=== PATIENT | female | born 1990 | race Two or more races ===

== ENCOUNTER → 2020-01-27 | Outpatient (CLI) | payer SELFPAY ==
--- NOTE | 2020-01-28 08:06 | RADIOLOGY REPORT (SQ) ---
EXAM DESCRIPTION: U/S [id number] TRNABD 1GES W/ODOP IMAGES COMPLETED DATE/TIME: 01/27/2020 2:33 pm REASON FOR STUDY: Z34.81 ENCOUNTER FOR SUPRVSN OF NORMAL , FIRST TRIMESTER Z34.81 ENCOUNTE R FOR SUPRVSN OF NORMAL , FIRST TRIM COMPARISON: None. TECHNIQUE: Transabdominal static and realtime grayscale images acquired of the pelvis. Additional se lected spectral and color Doppler images recorded. All images stored on PACs. bHCG: Not available. CLINICAL DATES: 11 weeks 4 days. LIMITATIONS: None. FINDINGS: FETUS: Single Living intrauterine . ULTRASOUND EGA: 11 week 0 days. ULTRASOUND DARSHAN: 08/17/2020 EFW: Not applicable less than 20 weeks. CRL: Visualized. FHR: 158 beats per minute. SURVEY: Too early to assess. AMNIOTIC FLUID: Adequate amount. PLACENTA: Not yet developed due to early gestation. SUBCHORIONIC BLEED: No. SIZE OF BLEED: Not applicable. UTERUS: No masses. No anomalies. CERVICAL LENGTH: 3.1 cm. Closed. RIGHT ADNEXA: Normal ovary with normal vascular flow. No adnexal free fluid. No adnexal masses. LEFT ADNEXA: Ovary not identified due to poor acoustical window. No adnexal free fluid. No adnexal masses. FREE FLUID: None. OTHER: No other significant finding. IMPRESSION: LIVING INTRAUTERINE . EGA 11 WEEK 0 DAYS. Trimester of : First trimester - 0 to 13 weeks. TECHNICAL DOCUMENTATION: JOB ID: [id number] 2010 [employer]- All Rights Reserved rev Reading location - IP/workstation name: [email or web address]
== END ==
LOC: RAD 13:55
PROVIDERS: ATTEND Midwife
DX: Z34.81 Encounter for supervision of other normal pregnancy, first trimester (principal); Z3A.11 11 weeks gestation of pregnancy
CPT/HCPCS: 76801

== ENCOUNTER → 2020-04-03 | Outpatient (CLI) | payer SELFPAY ==
--- NOTE | 2020-04-03 16:10 | RADIOLOGY REPORT (SQ) ---
EXAM DESCRIPTION: U/S OB 14+ TRNABD 1GES W/O DOP IMAGES COMPLETED DATE/TIME: 04/03/2020 3:34 pm REASON FOR STUDY: Z34.82 ENCOUNTER FOR SUPRVSN OF NORMAL , SECOND TRIMESTER Z34.82 ENCOUNT ER FOR SUPRVSN OF NORMAL , SECOND TRI COMPARISON: 01/27/2020 TECHNIQUE: Static and Dynamic grayscale imaging performed of gravid uterus using transabdominal appr oach. Additional selected color Doppler and spectral images recorded. All stored on PACS. LIMITATIONS: None. FINDINGS: FETUSES SEEN:1 EGA: 21 weeks 4 days. Calculated using BPD,FL,HC,AC documented on images. No discrepancy with clinic al dates. DARSHAN: 08/10/2020 EFW: 457 g grams LVP: 7.3 x 5.2 cm PLACENTA: Anterior location. The placenta is low-lying versus marginal. Follow-up studies are recom mended. PRESENTATION: Cephalic. ANATOMY: HEART RATE: 150 beats per minute. FOUR CHAMBER HEART: Visualized. THREE VESSEL CORD: Yes. CORD INSERTION: Visualized. KIDNEYS AND BLADDER: Visualized. Appear normal. STOMACH: Visualized. Appears normal. SPINE: Normal as visualized. BRAIN AND LATERAL VENTRICLES: Visualized. Appear normal. OTHER: No other significant finding. MATERNAL ADNEXA: Maternal ovaries not visualized. CERVICAL LENGTH: 4.7 cm Closed. OTHER: No other significant finding. IMPRESSION: LIVING INTRAUTERINE . ESTIMATED GESTATIONAL AGE 21 WEEKS 4 DAYS. THE PLACENTA IS MARGINAL VERSED LOW LYING. FOLLOW UP ULTRASOUND IS RECOMMENDED TO ENSURE NORMAL MIGR ATION. Trimester of : Second trimester - 13 weeks 1 day to 27 weeks 6 days. TECHNICAL DOCUMENTATION: JOB ID: [id number] 2010 [employer]- All Rights Reserved Reading location - IP/workstation name: [email or web address]
== END ==
LOC: RAD 13:54
PROVIDERS: ATTEND Midwife
DX: O43.892 Other placental disorders, second trimester (principal); Z3A.21 21 weeks gestation of pregnancy
CPT/HCPCS: 76805

== ENCOUNTER → 2020-05-21 | Outpatient (CLI) | payer SELFPAY ==
--- NOTE | 2020-05-21 15:18 | RADIOLOGY REPORT (SQ) ---
EXAM DESCRIPTION: U/S OB 14+ TRNABD 1GES W/O DOP IMAGES COMPLETED DATE/TIME: 05/21/2020 2:25 pm REASON FOR STUDY: Z34.82 ENCOUNTER FOR SUPRVSN OF NORMAL , SECOND TRIMESTER Z34.82 ENCOUNT ER FOR SUPRVSN OF NORMAL , SECOND TRI COMPARISON: 04/03/2020 TECHNIQUE: Limited transvaginal grayscale ultrasound for evaluation of specific requested obstetrica l parameters. LIMITATIONS: None. FINDINGS: CERVICAL LENGTH: 3.3 cm. Closed. ELIAN: 21.9 cm. FHR: 139 beats per minute. PRESENTATION: Breech. PLACENTA: Anterior, not low lying or previa. ANATOMY: Not assessed OTHER: Estimated gestational age 29 weeks 2 days. Estimated weight 1397 g, 68th percentile. IMPRESSION: LIMITED OBSTETRICAL ULTRASOUND WITH MEASURED PARAMETERS DELINEATED ABOVE. Trimester of : Third trimester - 28 weeks to delivery. TECHNICAL DOCUMENTATION: JOB ID: [id number] 2010 [employer]- All Rights Reserved Reading location - IP/workstation name: [email or web address]
== END ==
LOC: RAD 13:52
PROVIDERS: ATTEND Midwife
DX: Z34.83 Encounter for supervision of other normal pregnancy, third trimester (principal); Z3A.29 29 weeks gestation of pregnancy
CPT/HCPCS: 76805

== ENCOUNTER 2020-08-04 02:59 | Inpatient (IN) | payer SELFPAY ==
[2020-08-04 03:41] LABS: APPEARANCE,URINE CLEAR; BILIRUBIN,URINE NEGATIVE (NEGATIVE); COLOR,URINE YELLOW; GLUCOSE, URINE NEGATIVE (NEGATIVE); KETONES,URINE NEGATIVE (NEGATIVE); LEUKOCYTE ESTERASE,URINE NEGATIVE (NEGATIVE); NITRITE,URINE NEGATIVE (NEGATIVE); PROTEIN,URINE NEGATIVE (NEGATIVE); URINE SPECIFIC GRAVITY 1.013; UROBILINOGEN,URINE NEGATIVE mg/dL (<2.0)
[2020-08-04] MEDS ORDERED: RINGERS SOLUTION,LACTATED 1,000 ML IV ONE (03:45)
[2020-08-04] MEDS ORDERED: RINGERS SOLUTION,LACTATED 1,000 ML IV PRN (03:45)
[2020-08-04] MEDS ORDERED: OXYTOCIN 10 UNIT/ML VIAL ONE (03:50)
[2020-08-04] MEDS ORDERED: MISOPROSTOL 0.2 MG TABLET ONE ×2 (03:50→14:39)
[2020-08-04] MEDS ORDERED: LIDOCAINE 1% INJ-PF (10 MG/ML) 30 ML SDV ONE (03:50)
[2020-08-04] MEDS ORDERED: OXYTOCIN/0.9 % SODIUM CHLORIDE 30 UNIT/500 ML RTUINJ ONE (03:50)
[2020-08-04 03:55] LABS: URINE METHADONE SCREEN NEGATIVE
[2020-08-04 04:08] LABS: URINE AMPHETAMINES SCREEN NEGATIVE; URINE BARBITURATES SCREEN NEGATIVE; URINE BENZODIAZEPINES SCREEN NEGATIVE; URINE COCAINE SCREEN NEGATIVE; URINE MARIJUANA (THC) SCREEN NEGATIVE; URINE PHENCYCLIDINE SCREEN NEGATIVE
[2020-08-04 04:27] LABS: ABSOLUTE EOSINOPHILS # (AUTO) 0.1 10^3/uL (0.0-0.6); ABSOLUTE LYMPHOCYTES (AUTO) 1.9 10^3/uL (0.5-4.7); ABSOLUTE MONOCYTES (AUTO) 0.5 10^3/uL (0.1-1.4); ABSOLUTE NEUT (AUTO) 6.1 10^3/uL (1.7-8.2); BASOPHILS % (AUTO) 0.3 % (0-2); EOSINOPHILS % (AUTO) 0.7 % (0-6); HEMATOCRIT 32.3 % (36.0-47.0); HEMOGLOBIN 11.1 g/dL (12.0-15.5); MEAN CORPUSCULAR HEMOGLOBIN 30.8 pg (27.0-33.4); MEAN CORPUSCULAR HGB CONC 34.4 g/dL (32.0-36.0); MEAN CORPUSCULAR VOLUME 89 fl (80-97); MONOCYTES % (AUTO) 6.4 % (3-13); PLATELET COUNT 150 10^3/uL (150-450); RED BLOOD COUNT 3.62 10^6/uL (3.72-5.28); RED CELL DISTRIBUTION WIDTH 14.7 % (11.5-14.0); SEGMENTED NEUTROPHILS % (AUTO) 70.6 % (42-78); TOTAL CELLS COUNTED % (AUTO) 100 %; WHITE BLOOD COUNT 8.6 10^3/uL (4.0-10.5)
--- NOTE | 2020-08-04 05:56 | Admission Physical ---
Datetime Report Generated by CPN: 08/04/2020 05:55 CURRENT ADMISSION Chief Complaint: Uterine Contractions Indication for Induction: Not Applicable Admit Impression : Term, Intrauterine ; Active Labor; Ruptured Membranes Admit Plan: Admit to Unit; Initiate Labor Protocol ALLERGIES Medication Allergies: No Medication Allergies: No Known Allergies (08/04/2020) Latex: No Latex Allergies Food Allergies: no Environmental Allergies: no OBSTETRICAL HISTORY EDC: 08/13/2020 00:00 : 2 Para: 1 Term: 1 : 0 SAB: 0 IAB: 0 Ectopic: 0 Livin Cesareans: 0 VBACs: 0 Multiple Births: 0 Gestational Diabetes: No Rh Sensitization: No Incompetent Cervix: No WHIT: No Infertility: No ART Treatment: No Uterine Anomaly: No IUGR: No Hx Previous C/S: No Macrosomia: No Hx Loss/Stillborn: No PIH: No Hx : No Placenta Previa/Abruption: No Depression/PP Depression: No PTL/PROM: No Post Hemorrhage: No Current Procedures: Ultrasound SEE RECORDS Alcohol: No Marijuana : No Cocaine: No Other Illicit Drugs: No Cigarettes: Never Smoker. [id number] MEDICAL HISTORY Diabetes: No Blood Transfusion: No Pulmonary Disease (Asthma, TB): No Breast Disease: No Hypertension: No Associate Field Service Engineer Surgery: No Heart Disease: No Hosp/Surgery: Yes Autoimmune Disorder: No Anesthetic Complications: No Kidney Disease: No Abnormal Pap Smear: No Neuro/Epilepsy: No Psychiatric Disorders: No Other Medical Diseases: No Hepatitis/Liver Disease: No Significant Family History: No Varicosities/Phlebitis: No Trauma/Violence : No Thyroid Dysfunction: No Medical History Comments: childbirth INFECTIOUS HISTORY Gonorrhea: No Genital Herpes: No Chlamydia: No Tuberculosis: No Syphilis: No Hepatitis: No HIV/AIDS Exposure: No Rash or Viral Illness: No HPV: No PHYSICAL EXAM General: Normal HEENT: Normal Neurologic: Normal Thyroid: Normal Heart: Normal Lungs: Normal Breast: Normal Back: Normal Abdomen: Normal Genitourinary Exam: Normal Extremities: Normal DTRs: Normal Pelvic Type: Adequate Vital Signs: Reviewed; Within Normal Limits VAGINAL EXAM Dilatation: 1 Effacement: 50 Station: -4 MEMBRANES Pooling: Positive Membranes: Ruptured Amniotic Fluid Color: Clear FETUS A EGA: 38.5 Monitoring: External US FHR- Baseline: 130 Variability: Moderate 6-25bpm Accelerations: 15X15 Decelerations: None FHR Category: Category I Estimated Weight (gm): 3800 Presentation: Vertex PLANS FOR LABOR AND DELIVERY Labor and Delivery: None Pain Management: Medications Feeding Preference: Breast Benefit of Breast Feed Discussed: Yes Circumcision: No INFORMED CONSENT Signature: with User ID: [email or web address]
[2020-08-04] MEDS ORDERED: OXYTOCIN/0.9 % SODIUM CHLORIDE 30 UNIT/500 ML RTUINJ IV PRN ×2 (07:37→12:11)
[2020-08-04] MEDS ORDERED: PROMETHAZINE HCL INJ 25 MG/1 ML VIAL ONE (10:24)
[2020-08-04] MEDS ORDERED: NALBUPHINE HCL INJ 10 MG/1 ML AMPULE ONE (10:24)
[2020-08-04] MEDS ORDERED: PROMETHAZINE HCL INJ 25 MG/1 ML VIAL IV ONE (10:29)
[2020-08-04] MEDS ORDERED: NALBUPHINE HCL INJ 10 MG/1 ML AMPULE INJ ONE (10:29)
[2020-08-04 11:51] LABS: CHLAM PCR NOT DETECTED (NOT DETECT)
[2020-08-04] MEDS ORDERED: DIPHENHYDRAMINE HCL 25 MG CAPSULE PO PRN (12:11)
[2020-08-04] MEDS ORDERED: PROMETHAZINE HCL 25 MG SUPP.RECT PR PRN (12:11)
[2020-08-04] MEDS ORDERED: NA PHOS,M-B/NA PHOS,DI-BA (ADULT) 133 ML ENEMA PR PRN (12:11)
[2020-08-04] MEDS ORDERED: ZOLPIDEM TARTRATE 5 MG TABLET PO PRN (12:11)
[2020-08-04] MEDS ORDERED: GLYCERIN/WITCH HAZEL LEAF 1 EACH MED..WIPE TP PRN (12:11)
[2020-08-04] MEDS ORDERED: PROMETHAZINE HCL 25 MG TABLET PO PRN (12:11)
[2020-08-04] MEDS ORDERED: BENZOCAINE/MENTHOL AEROSOL SPRAY 56 ML TOP PRN (12:11)
[2020-08-04] MEDS ORDERED: DIBUCAINE 1% OINTMENT 28 GM TP PRN (12:11)
[2020-08-04] MEDS ORDERED: DIPH/PERTUSS(ACELL)/TETANUS VAC/PF 0.5 ML SYR (>=10YO) IM PRN (12:11)
[2020-08-04] MEDS ORDERED: MAGNESIUM HYDROXIDE SUSP 30 ML UDCUP PO PRN (12:11)
[2020-08-04] MEDS ORDERED: ACETAMINOPHEN WITH CODEINE #3 TABLET PO PRN ×2 (12:11)
[2020-08-04] MEDS ORDERED: MEASLES,MUMPS&RUBELLA VACC/PF 0.5 ML VIAL SUBCUT PRN (12:11)
[2020-08-04] MEDS ORDERED: PROMETHAZINE HCL INJ 25 MG/1 ML VIAL IV PRN (12:11)
[2020-08-04] MEDS ORDERED: ACETAMINOPHEN 325 MG TABLET PO PRN (12:11)
[2020-08-04] MEDS ORDERED: PSEUDOEPHEDRINE HCL 30 MG TABLET PO PRN (12:11)
[2020-08-04] MEDS ORDERED: IBUPROFEN 800 MG TABLET ONE (13:37)
[2020-08-04] MEDS: IBUPROFEN 800 MG TABLET PO SCH ×2 (13:39→22:34)
--- NOTE | 2020-08-04 14:54 | Birth Certificate Data ---
Cert Data Datetime Report Generated by CPN: 08/04/2020 14:54 CERTIFICATE DATA Delivery Provider: NOÉ SIMPSON (08/04/2020 03:16:Cait Tong CNM ) 47a. Care: Yes (08/04/2020 03:16:KUMAR Shelton) 47b. Date of First Visit: 12/26/2019 00:00 (08/04/2020 03:16:KUMAR Shelton) 47c. Date of Last Visit: 07/14/2020 00:00 (08/04/2020 03:16:KUMAR Shelton) 47d. Number of Visits: 10 (08/04/2020 03:16:KUMAR Shelton) 48a. Number of Prev Live Births: 1 (08/04/2020 03:16:KUMAR Shelton) 48b. Now Livin (08/04/2020 03:16:KUMAR Shelton) 48c. Live Births Now : 0 (08/04/2020 03:16:QS system process) 48e. Losses: 0 (08/04/2020 03:16:Radha Bellavance, RNC) RISK FACTORS IN THIS 49a. Diabetes: No (08/04/2020 03:16:Radha Bellavance, RNC) 49b. Hypertension: No (08/04/2020 03:16:Radha Bellavance, RNC) 49c. Previous Births: 0 (08/04/2020 03:16:Radha Bellavance, RNC) 49d. Stillborns: No (08/04/2020 03:16:Radha Bellavance, RNC) 49d. IUGR: No (08/04/2020 03:16:Radha Bellavance, RNC) 49e. Infertility Treatment: No (08/04/2020 03:16:Radha Bellavance, RNC) 49f. Previous Cesareans: 0 (08/04/2020 03:16:Radha Bellavance, RNC) Mother's Height 50b. Height Inches: 60 (08/04/2020 03:10:QS system process) Mother's Weight 51a. Pre- Weight (lbs): 152 (08/04/2020 03:16:KUMAR Shelton) 51b. Weight at Delivery (lbs): 176 (08/04/2020 14:21:QS system process) 52. Dt Last Normal Menses Began: 11/07/2019 00:00 (08/04/2020 03:16:KUMAR Shelton) Infections Present/Treated 53a. Gonorrhea: No (08/04/2020 03:16:KUMAR Shelton) Results this Hospital Visit : Negative (08/04/2020 03:16:KUMAR Shelton) 53b. Syphilis: No (08/04/2020 03:16:KUMAR Shelton) Results this Hospital Visit: NONREACTIVE (08/04/2020 04:02:QS system process) 53c. Chlamydia: No (08/04/2020 03:16:Rahda Bellavance, RNC) Results this Hospital Visit: Negative (08/04/2020 03:16:Radhaapwan Schultze, RNC) 53d. Hepatitis B: No (08/04/2020 03:16:Radha Marione, RNC) Results this Hospital Visit: Negative (08/04/2020 03:16:Radha Marione, RNC) 53e. Hepatitis C: Negative (08/04/2020 03:16:Radhapawan Salas, RNC) 53h. Mother Tested for HBsAG: Yes (08/04/2020 03:16:Radhapawan Salas, RNC) 53i. Date Tested: 01/24/2020 00:00 (08/04/2020 03:16:Radhapawan Salas, RNC) 53j. Test Result: Negative (08/04/2020 03:16:Radha Marione, RNC) Obstetric Procedures 54a, b, c. Obstetric Procedures: Ultrasound (08/04/2020 03:16:Radha Salas RNC) Cigarette Smoking Cigarette Smoking: Never Smoker. [id number] (08/04/2020 03:16:KUMAR Shelton) Onset of Labor 56a. PROM >12 Hrs: 10.30 (08/04/2020 04:30:QS system process) 56b. Precipitous Labor <3 Hrs: 1 (08/04/2020 03:16:QS system process) 56c. Prolonged Labor > 20 Hrs: 1 (08/04/2020 03:16:QS system process) 57a. Induction of Labor: Augmentation (08/04/2020 03:16:KUMAR Celestin) 57c. Non-Vertex Presentation A: Vertex (08/04/2020 03:16:KUMAR Celestin) 57d. Steroids - Lung Mat: None (08/04/2020 03:16:KUMAR Celestin) 57d. Steroids - Lung Mat: Not Applicable (08/04/2020 03:16:KUMAR Celestin) 57f. Mat Ch[place] or Temp >100.4: 98.3 (08/04/2020 03:16:Little Whitley RN) 57g. Moderate/Heavy Meconium: Clear (08/04/2020 04:30:KUMAR Shelton) 57h. Intolerance of Labor: N/A (08/04/2020 03:16:KUMAR Celestin) : N/A (08/04/2020 03:16:KUMAR Celestin) 57i. Epidural/Spinal Anesthesia: IV Sedation (08/04/2020 03:16:KUMAR Celestin) Method of Delivery 58a. Forceps - Unsuccessful A: N/A (08/04/2020 03:16:KUMAR Celestin) 58b. Vacuum - Unsuccessful A: N/A (08/04/2020 03:16:Araceli Steward Tejal) 58c. Presentation at 58c. Presentation at - A : Vertex (08/04/2020 03:16:KUMAR Celestin) 58c. Presentation at - A : N/A (08/04/2020 03:16:KUMAR Celestin) 58c. Presentation at - A : Cephalic (08/04/2020 03:16:Araceli Camp, RNC) Final Route and Method of Del 58d. Baby A Route/Delivery: Vaginal (08/04/2020 11:48:Araceli Camp, [facility]) 58e. Trial of Labor Attempted: No (08/04/2020 03:16:Araceli Camp, RN) 58e. Trial of Labor Attempted A: N/A (08/04/2020 03:16:Araceli Camp, RN) 58e. Trial of Labor Attempted B: N/A (08/04/2020 03:16:Araceli Camp, RNC) Maternal Morbidity 59b. 3rd or 4th Degree Lacs: None (08/04/2020 03:16:Araceli Camp, RN) 59b. 3rd or 4th Degree Lacs: N/A (08/04/2020 03:16:Araceli Camp, RNC) Birthweight Baby A: 3570 (08/04/2020 03:16:Little Sales, RN) 60a. Pounds : 7 (08/04/2020 03:16:QS system process) 60b. Ounces: 14 (08/04/2020 03:16:QS system process) 61. GA at Delivery Baby A: 38.5 (08/04/2020 03:16:Araceli Camp, [facility]) : Early Term- 37- 38.6 Weeks (08/04/2020 03:16:QS system process) 62a. 5 Minute Baby A: 9 (08/04/2020 03:16:QS system process)
--- NOTE | 2020-08-04 14:54 | Delivery Summary ---
Del Sum A-C Datetime Report Generated by CPN: 08/04/2020 14:54 DELIVERY PERSONNEL DELIVERY PERSONNEL: [id number] Delivery Doctor:: NOÉ TATIANA Nurse Welder Production Line Arc Certified:: Cait Tong CNM Labor and Delivery Nurse:: Little Whitley RNcurtain cutter Nurse:: Azucena Cabral RN Nursery Nurse:: Hope Donahue RN Nursery Nurse:: Jennifer Izquierdo RN Gear Inspector/APRON CLEANER: Coby Christine CNA II Additional Personnel: : Araceli Steward, RNC MATERNAL INFORMATION Delivery Anesthesia: None Medications After Delivery: Pitocin 30 Units in 500ml NS/D5W Delivery QBL: 200 Maternal Complications: None Provider Comments: TATIANA VIABLE MALE WITH SPONTANEOUS CRY. CORD DOUBLE CLAMPED AND CUT. SPONTANEOUS INTACT PLACENTA WITH 3VC. NO LACERATIONS. MOTHER AND STABLE IN L_D#6. MARTII USED FOR INTERPRETATION DURING DELIVERY LABOR SUMMARY EDC: 08/13/2020 00:00 No. Babies in Womb: 1 Attempted: No Labor Anesthesia: IV Sedation LABOR INFORMATION Reason for Induction: Not Applicable Onset of Labor: 08/04/2020 10:20 Complete Dilatation: 08/04/2020 11:33 Oxytocin: Augmentation Group B Beta Strep: neg Antibiotics # of Doses: 0 Name of Antibiotic Given: NA Steroids Given: None Reason Steroids Not Administered: Not Applicable MEMBRANES Membranes Rupture Method: Spontaneous Rupture of Membranes: 08/04/2020 01:30 Length of Rupture (hr): 10.30 Amniotic Fluid Color: Clear Amniotic Fluid Amount: Scant Amniotic Fluid Odor: Normal STAGES OF LABOR Stage 1 hr: 1 Stage 1 min: 13 Stage 2 hr: 0 Stage 2 min: 15 Stage 3 hr: 0 Stage 3 min: 15 Total Time in Labor hr: 1 Total Time in Labor min: 43 VAGINAL DELIVERY Episiotomy: None Laceration #1: None Laceration Extension #1: N/A Laceration Repair: Not Applicable Sponge Count Correct: N/A Sharps Count Correct: N/A CSECTION DELIVERY Primary Indication: N/A Secondary Indication: N/A CSection Incidence: N/A Labor: N/A Elective: N/A CSection Incision: N/A BABY A INFORMATION Delivery Date/Time: 08/04/2020 11:48 Method of Delivery: Vaginal Nurse Controlled Delivery: No Born in Route : No : N/A Forceps: N/A Vacuum Extraction: N/A Shoulder Dystocia : No PRESENTATION/POSITION BABY A Presentation: Cephalic Cephalic Presentation: Vertex Vertex Position: Left Occipital Anterior Breech Presentation: N/A PLACENTA INFORMATION BABY A Placenta Delivery Time : 08/04/2020 12:03 Placenta Method of Delivery: Expressed Placenta Status: Delivered SCORES BABY A Heart Rate 1 min: >100 bpm Resp Effort 1 min: Good Cry Reflex Irritability 1 min: Cough or Sneeze or Pulls Away Muscle Tone 1 min: Active Motion Color 1 min: Body Svensen, Extremities Blue Resuscitation Effort 1 min: Tactile Stimulation SCORE 1 MIN: 9 Heart Rate 5 min: >100 bpm Resp Effort 5 min: Good Cry Reflex Irritability 5 min: Cough or Sneeze or Pulls Away Muscle Tone 5 min: Active Motion Color 5 min: Body Svensen, Extremities Blue Resuscitation Effort 5 min: N/A SCORE 5 MIN: 9 Resuscitation Effort 10 min: N/A INFORMATION BABY A Gestational Age at Delivery: 38.5 Gestational Status: Early Term- 37- 38.6 Weeks Infant Outcome : Liveborn Infant Condition : Stable Sex: Male IDENTIFICATION BABY A Infant Verification Date/Time: 08/03/2020 12:20 WEIGHT/LENGTH BABY A Birthweight (gm): 3570 Infant Weight (lb): 7 Weight (oz): 14 Infant Length (in): 19.50 Infant Length (cm): 49.53 CORD INFORMATION BABY A No. Cord Vessels: 3 Nuchal Cord : N/A Cord Blood Taken: Yes-For Eval (Mom's Blood Type - or O+) Suction: None ASSESSMENT BABY A Complications: None Physical Findings at Delivery: Molding of the Head Respirations: Appears Normal Skin to Skin: Yes Electrical Continuity Tester/ALS Called : No Infant Care By: A [place] RN Transferred To: Remains with Mother BABY B INFORMATION : N/A SIGNATURES Assignment: Arie Kevin, MD Signature: with User ID: [email or web address] : with User ID: [email or web address] : I was personally available for consultation and serving as supervising physician for the MLP.
[2020-08-04] MEDS ORDERED: MISOPROSTOL 0.2 MG TABLET PR ONE (14:58)
[2020-08-04] MEDS ORDERED: FENTANYL CITRATE INJ/PF 100 MCG/2 ML AMPUL ONE (15:37)
[2020-08-04] MEDS ORDERED: METHYLERGONOVINE MALEATE INJ/PF 0.2 MG/1 ML AMPULE ONE (15:37)
[2020-08-04] MEDS ORDERED: TRANEXAMIC ACID INJ/PF 1,000 MG/10 ML SDV ONE (15:40)
[2020-08-04] MEDS ORDERED: TRANEXAMIC ACID INJ/PF 1,000 MG/10 ML SDV IV ONE (15:54)
[2020-08-04] MEDS ORDERED: METHYLERGONOVINE MALEATE INJ/PF 0.2 MG/1 ML AMPULE IM ONE (15:54)
[2020-08-04] MEDS ORDERED: FENTANYL CITRATE INJ/PF 100 MCG/2 ML AMPUL IV ONE (15:55)
--- NOTE | 2020-08-04 15:57 | Progress Note ---
Provider Note Provider Note: called to assess bleeding by RN. fentanyl given for pain IV, large clots extracted from lower uterine segment. TXA IV and methergine IM given. pt stable. CBC ordered
[2020-08-04 16:22] LABS: HEMATOCRIT 29.6 % (36.0-47.0); MEAN CORPUSCULAR HEMOGLOBIN 30.2 pg (27.0-33.4); MEAN CORPUSCULAR HGB CONC 33.8 g/dL (32.0-36.0); MEAN CORPUSCULAR VOLUME 89 fl (80-97); PLATELET COUNT 153 10^3/uL (150-450); RED BLOOD COUNT 3.32 10^6/uL (3.72-5.28); RED CELL DISTRIBUTION WIDTH 15.4 % (11.5-14.0)
[2020-08-04] MEDS: DOCUSATE SODIUM 100 MG CAPSULE PO SCH (17:21)
[2020-08-04] MEDS: FERROUS SULFATE 325 MG TABLET PO SCH (17:21)
[2020-08-04] MEDS: FAMOTIDINE 20 MG TABLET PO SCH (22:34)
[2020-08-05] MEDS: IBUPROFEN 800 MG TABLET PO SCH ×3 (05:24→21:10)
[2020-08-05 08:00] LABS: HEMATOCRIT 27.8 % (36.0-47.0); HEMOGLOBIN 9.4 g/dL (12.0-15.5); MEAN CORPUSCULAR HEMOGLOBIN 30.4 pg (27.0-33.4); MEAN CORPUSCULAR HGB CONC 33.7 g/dL (32.0-36.0); MEAN CORPUSCULAR VOLUME 90 fl (80-97); PLATELET COUNT 160 10^3/uL (150-450); RED BLOOD COUNT 3.08 10^6/uL (3.72-5.28); WHITE BLOOD COUNT 11.9 10^3/uL (4.0-10.5)
[2020-08-05] MEDS ORDERED: PRENATAL PO SCH (10:00)
[2020-08-05] MEDS ORDERED: [UNRECOGNIZED DRUG - OTHER] PO SCH (10:00)
[2020-08-05] MEDS ORDERED: IRON FUM PO SCH (10:00)
[2020-08-05] MEDS ORDERED: DHA PO SCH (10:00)
[2020-08-05] MEDS ORDERED: FOLIC PO SCH (10:00)
--- NOTE | 2020-08-05 10:20 | PDOC PROGRESS REPORT ---
Subjective-OB Progress Note for:: 08/05/20 Subjective: 29yo G2 now P2 s/p ppd 1. Pt ambulating and voiding without difficulty. Reports minimal bleeding and pain well tolerated with medication. Denies SOB/lightheadedness/dizziness today. Reports she experienced some sob and heart palpitations yesterdya but no today. No other concerns today. Physical Exam (OB) Vital Signs: Temp Pulse Resp BP Pulse Ox 97.9 F 92 17 104/67 100 08/05/20 08:13 08/05/20 08:13 08/05/20 08:13 08/05/20 08:13 08/05/20 08:13 Intake & Output 08/04/20 08/05/20 08/06/20 06:59 06:59 06:59 Intake Total 240 Output Total 100 Balance 140 Weight 80.2 kg - General General Appearance: Appears well In distress: None - PIH/Pre-Eclampsia Headache: Absent - Maternal Morbidity 59. Maternal Morbidity (serious complications experinced by the mother associated with labor and delivery: None of the above - hemorrhage - Episiotomy/Laceration Site Condition: N/A - Lochia Lochia Amount: Small 10-25 ml Lochia Color: Rubra/Red - Abdomen Description: Soft Hernia Present: No Fundal Description: Firm, Midline Fundal Height: u/u - u/2 - Respiratory Respiratory Status: No respiratory distress - Extremities Upper extremity: Normal inspection Lower extremities: Normal inspection - Neurological Cognition: Normal Orientation: AAOx4 - Psychological Associated symptoms: Normal affect, Normal mood Objective-Diagnostic Laboratory: 08/05/20 07:31 08/04/20 08/05/20 16:11 07:31 WBC 16.0 H 11.9 H RBC 3.32 L 3.08 L Hgb 10.0 L 9.4 L Hct 29.6 L 27.8 L MCV 89 90 MCH 30.2 30.4 MCHC 33.8 33.7 RDW 15.4 H 15.0 H Plt Count 153 160 Assessment and Plan(PN) - Assessment and Plan (1) Acute blood loss anemia Is this a current diagnosis for this admission?: Yes Plan: IV iron ordered, increase dietary iron and FeSO4 supplementation agreeable to infusion (2) Vaginal delivery Is this a current diagnosis for this admission?: Yes Plan: routine pp care - Time Spent with Patient Time with patient: 15-25 minutes Medications reviewed and adjusted accordingly: Yes - Disposition Anticipated Discharge Disposition: Home, Self Care Anticipated Discharge Timeframe: within 24 hours
[2020-08-05] MEDS ORDERED: IRON SUCROSE COMPLEX INJ/PF 100 MG/5 ML SDV IV ONE (11:00)
[2020-08-05] MEDS: PRENATAL VITAMIN W DHA CAPSULE PO SCH (11:07)
[2020-08-05] MEDS: FERROUS SULFATE 325 MG TABLET PO SCH ×2 (11:07→18:21)
[2020-08-05] MEDS: SENNOSIDES/DOCUSATE 8.6-50 MG 1 EACH TABLET PO SCH (11:07)
[2020-08-05] MEDS: FAMOTIDINE 20 MG TABLET PO SCH ×2 (11:07→21:10)
[2020-08-05] MEDS: DOCUSATE SODIUM 100 MG CAPSULE PO SCH ×2 (11:08→18:21)
[2020-08-06] MEDS: IBUPROFEN 800 MG TABLET PO SCH (06:38)
--- NOTE | 2020-08-06 09:44 | PDOC DISCHARGE SUMMARY ---
Impression - Admit/DC Date/PCP Admission Date/Primary Care Provider: 08/04/20 03:48 Discharge Date: 08/06/20 - PP Day #2, UOB, doing well, no complaints, O+, Rubella immune. Hx of PPH, states very small amount of bleeding now - Additional Information Resuscitation Status: Full Code Discharge Diet: As Tolerated, Regular Discharge Activity: Activity As Tolerated, No Lifting Over 10 Pounds, Pelvic Rest Prescriptions: Ferrous Sulfate [Feosol 325 mg Tablet] 325 mg PO DAILY #30 tablet Ibuprofen [Motrin 800 mg Tablet] 800 mg PO Q8 #60 tablet Home Medications: 95/Iron Fum/Folic/Dha [ + Dha Combo Pack] 1 each PO DAILY 08/04/20 Ferrous Sulfate [Feosol 325 mg Tablet] 325 mg PO DAILY #30 tablet 08/06/20 Ibuprofen [Motrin 800 mg Tablet] 800 mg PO Q8 #60 tablet 08/06/20 HPI Reason(s) for Admission: Onset of Labor Procedures: Ultrasound Intrapartum Procedure(s): Spontaneous Vaginal Delivery Complication(s): Hemorrhage-Uterine Atony Hospital Course 59. Maternal Morbidity (serious complications experinced by the mother associated with labor and delivery: None of the above - hemorrhage Results Laboratory Results: WBC 11.9 10^3/uL (4.0-10.5) H 08/05/20 07:31 RBC 3.08 10^6/uL (3.72-5.28) L 08/05/20 07:31 Hgb 9.4 g/dL (12.0-15.5) L 08/05/20 07:31 Hct 27.8 % (36.0-47.0) L 08/05/20 07:31 MCV 90 fl (80-97) 08/05/20 07:31 MCH 30.4 pg (27.0-33.4) 08/05/20 07:31 MCHC 33.7 g/dL (32.0-36.0) 08/05/20 07:31 RDW 15.0 % (11.5-14.0) H 08/05/20 07:31 Plt Count 160 10^3/uL (150-450) 08/05/20 07:31 Lymph % (Auto) 22.0 % (13-45) 08/04/20 04:02 [place] % (Auto) 6.4 % (3-13) 08/04/20 04:02 Eos % (Auto) 0.7 % (0-6) 08/04/20 04:02 Baso % (Auto) 0.3 % (0-2) 08/04/20 04:02 Absolute Neuts (auto) 6.1 10^3/uL (1.7-8.2) 08/04/20 04:02 Absolute Lymphs (auto) 1.9 10^3/uL (0.5-4.7) 08/04/20 04:02 Absolute Monos (auto) 0.5 10^3/uL (0.1-1.4) 08/04/20 04:02 Absolute Eos (auto) 0.1 10^3/uL (0.0-0.6) 08/04/20 04:02 Absolute Basos (auto) 0.0 10^3/uL (0.0-0.2) 08/04/20 04:02 Seg Neutrophils % 70.6 % (42-78) 08/04/20 04:02 Urine Color YELLOW 08/04/20 03:15 Urine Appearance CLEAR 08/04/20 03:15 Urine pH 7.0 (5.0-9.0) 08/04/20 03:15 Ur Specific [place] 1.013 08/04/20 03:15 Urine Protein NEGATIVE mg/dL (NEGATIVE) 08/04/20 03:15 Urine Glucose (UA) NEGATIVE mg/dL (NEGATIVE) 08/04/20 03:15 Urine Ketones NEGATIVE mg/dL (NEGATIVE) 08/04/20 03:15 Urine Blood NEGATIVE (NEGATIVE) 08/04/20 03:15 Urine Nitrite NEGATIVE (NEGATIVE) 08/04/20 03:15 Urine Bilirubin NEGATIVE (NEGATIVE) 08/04/20 03:15 Urine Urobilinogen NEGATIVE mg/dL (<2.0) 08/04/20 03:15 Ur Leukocyte Esterase NEGATIVE (NEGATIVE) 08/04/20 03:15 Urine Ascorbic Acid NEGATIVE (NEGATIVE) 08/04/20 03:15 Membranes Rupture POSITIVE (NEGATIVE) H 08/04/20 03:20 Urine Opiates Screen NEGATIVE 08/04/20 03:15 Urine Methadone Screen NEGATIVE 08/04/20 03:15 Ur Barbiturates Screen NEGATIVE 08/04/20 03:15 Ur Phencyclidine Scrn NEGATIVE 08/04/20 03:15 Ur Amphetamines Screen NEGATIVE 08/04/20 03:15 U Benzodiazepines Scrn NEGATIVE 08/04/20 03:15 Urine Cocaine Screen NEGATIVE 08/04/20 03:15 U Marijuana (THC) Screen NEGATIVE 08/04/20 03:15 RPR NONREACTIVE (NONREACTIVE) 08/04/20 04:02 Chlamydia DNA (PCR) NOT DETECTED (NOT DETECT) 08/04/20 09:39 N.gonorrhoeae DNA (PCR) NOT DETECTED (NOT DETECT) 08/04/20 09:39 Blood Type O POSITIVE 08/04/20 04:02 Antibody Screen NEGATIVE 08/04/20 04:02 Plan Plan of Treatment: d/c home, f/up with [facility] in 4 wks for PP check Time Spent: Less than 30 Minutes
[2020-08-06] MEDS: FERROUS SULFATE 325 MG TABLET PO SCH (10:27)
[2020-08-06] MEDS: FAMOTIDINE 20 MG TABLET PO SCH (10:27)
[2020-08-06] MEDS: PRENATAL VITAMIN W DHA CAPSULE PO SCH (10:27)
[2020-08-06] MEDS: SENNOSIDES/DOCUSATE 8.6-50 MG 1 EACH TABLET PO SCH (10:27)
[2020-08-06] MEDS: DOCUSATE SODIUM 100 MG CAPSULE PO SCH (10:27)
[2020-08-06 11:45] VITALS: BP 118/73
== END 2020-08-06 13:26 | disposition home or self-care (01) | DRG 806 ==
LOC: LC 02:59 → LR 03:48 → 2S 14:20
PROVIDERS: ADMIT Obstetrics & Gynecology; ATTEND Obstetrics & Gynecology
PROC: 10E0XZZ Delivery of Products of Conception, External Approach (ICD-10-PCS; principal; 2020-08-04)
DX: O72.1 Other immediate postpartum hemorrhage (principal); D62 Acute posthemorrhagic anemia; Z37.0 Single live birth; O90.81 Anemia of the puerperium; Z20.828 Contact with and (suspected) exposure to other viral communicable diseases; Z3A.38 38 weeks gestation of pregnancy
CPT/HCPCS: 36415; 80307; 81005; 84112; 85025; 85027; 86592; 86850; 86900; 86901; 87491; 87591; 94760; J1756; J2210; J2300; J2550; J2590; J3010; J3490